=== PATIENT | male | born 1965 | race Caucasian/White ===

== ENCOUNTER 2023-02-19 16:28 | Emergency (ER) | payer SELFPAY ==
[~2023-02-19] VITALS: Ht 180.3 cm; Wt 72.6 kg
[2023-02-19] MEDS ORDERED: IBUPROFEN 200 MG TAB PO STA (16:54)
[2023-02-19] MEDS ORDERED: SODIUM CHLORIDE 0.9% 1000ML 1,000 ML IV STA (17:10)
[2023-02-19] MEDS ORDERED: HYDROCODONE/APAP 10MG-325MG TAB PO ONE (17:15)
[2023-02-19 17:31] LABS: BASOPHILS # (AUTO) 0.1 (0.0-0.1); BASOPHILS % 0.5 % (0.0-1.0); EOSINOPHILS # (AUTO) 0.2 (0.0-0.4); EOSINOPHILS % 1.4 % (0.0-6.0); HEMATOCRIT 45.4 % (38.2-49.6); HEMOGLOBIN 15.9 g/dL (14.0-18.0); LYMPHOCYTES # (AUTO) 1.8 (1.0-3.2); LYMPHOCYTES % 14.2 % (18.0-39.1); MEAN CORPUSCULAR HEMOGLOBIN 30.7 pg (28-32); MEAN CORPUSCULAR VOLUME 87.6 fL (81-99); MONOCYTES # (AUTO) 0.8 (0.2-0.8); MONOCYTES % 5.9 % (4.4-11.3); NEUTROPHILS # (AUTO) 10.1 (2.1-6.9); NEUTROPHILS % 77.6 % (38.7-80.0); PLATELET COUNT 261 x10e3/uL (140-360); RED BLOOD COUNT 5.18 x10e6/uL (4.3-5.7); RED CELL DISTRIBUTION WIDTH 12.1 % (11.7-14.4)
[2023-02-19 17:44] LABS: INR 0.87
[2023-02-19 17:45] LABS: PARTIAL THROMBOPLASTIN TIME 25.6 seconds (23.8-35.5)
[2023-02-19 17:56] LABS: ALBUMIN 3.8 g/dL (3.5-5.0); ALBUMIN/GLOBULIN RATIO 1.1 (0.8-2.0); ANION GAP 14.8 mmol/L (8-16); CALCIUM 9.3 mg/dL (8.4-10.2); CREATINE KINASE 46 IU/L (30-200); CREATININE, SERUM 1.19 mg/dL (0.72-1.25); MAGNESIUM 1.6 MG/DL (1.3-2.1); POTASSIUM 3.8 mmol/L (3.5-5.1)
[2023-02-19] MEDS ORDERED: INSULIN REGULAR, HUMAN 100 UNIT/1 ML SQ ONE (18:15)
[2023-02-19] MEDS ORDERED: LACTATED RINGER'S 1,000 ML IV ONE (18:15)
[2023-02-19] MEDS ORDERED: ACETAMINOPHEN-1 EAC4 PO (18:40)
[2023-02-19] MEDS ORDERED: METFORMIN HCL500 M1 PO (18:49)
[2023-02-19 19:46] VITALS: BP 169/94; PULSE 92; RESP 19; TEMP 98.6; O2SAT 100
== END 2023-02-19 20:00 | disposition home or self-care (01) ==
LOC: ER 16:50
DX: M79.662 Pain in left lower leg (principal); E11.65 Type 2 diabetes mellitus with hyperglycemia; M54.32 Sciatica, left side; I73.9 Peripheral vascular disease, unspecified; E78.5 Hyperlipidemia, unspecified; F17.210 Nicotine dependence, cigarettes, uncomplicated
CPT/HCPCS: 36415; 80053; 82550; 82948; 83735; 84484; 85025; 85610; 85730; 93926; 99284; J7030; J7121